=== PATIENT | male | born 1955 | race Caucasian/White ===

== ENCOUNTER → 2016-08-08 | Outpatient (CLI) | payer BC ==
[~2016-08-08] MED LIST: ACET-62 PO; ASPI-611 PO; DIPH25CA84 PO; GLUC100015 PO; MULT-933 PO; PRAV40TA3 PO; PRED10TA PO; [UNRECOGNIZED DRUG - CODE] TOP
--- NOTE | 2016-08-08 12:57 | DI ---
INDICATION: ITS.REASON: R05 COUGH PROCEDURE: CHEST 2-VIEWS UPRIGHT (PA \T\ LAT) Encounter: Initial COMPARISON: Chest x-ray dated June 18, 2015 FINDINGS: The lungs are clear without evidence of focal abnormal airspace opacity. There is no pleural effusion or pneumothorax. The heart size, mediastinal contours and pulmonary vascularity are within normal limits. IMPRESSION: No acute cardiopulmonary disease. .
== END ==
LOC: IMA 11:37
PROVIDERS: ATTEND Family Medicine
DX: R05 Cough (principal)